=== PATIENT | male | born 1960 | race Caucasian/White ===

== ENCOUNTER 2018-02-27 21:34 | Emergency (ER) | payer OTHER ==
[~2018-02-27] VITALS: Ht 172.7 cm; Wt 69.1 kg
[~2018-02-27 21:34] MED LIST: DEPAKENE250 MG PO; DILANTIN100 MG PO; MYSOLINE50 MG PO
[2018-02-27 23:34] LABS: APPEARANCE CLEAR ((CLEAR)); BILIRUBIN NEGATIVE; BLOOD NEGATIVE; COLOR YELLOW ((YELLOW)); GLUCOSE (STRIP) NEGATIVE; KETONES 20; LEUKOCYTES NEGATIVE; NITRITE NEGATIVE; PROTEIN (STRIP) 30; SPECIFIC GRAVITY 1.021 (1.000-1.030); UROBILINOGEN 0.2 MG/DL (0.2-1.0)
[2018-02-28] MEDS ORDERED: MOTRIN600 MG PO (00:30)
[2018-02-28 00:38] VITALS: BP 137/91
== END 2018-02-28 00:39 | disposition home or self-care (01) ==
LOC: EME 21:34
PROVIDERS: Physician Assistant
DX: S39.011A Strain of muscle, fascia and tendon of abdomen, initial encounter (principal); I86.1 Scrotal varices; R56.9 Unspecified convulsions; Z87.891 Personal history of nicotine dependence; Z88.0 Allergy status to penicillin
CPT/HCPCS: 76870; 81003; 99281; 99283